=== PATIENT | female | born 1980 | race African-American/Black ===

== ENCOUNTER 2019-08-21 07:24 | Emergency (ER) | payer BC, OTHER ==
[2019-08-21 08:14] LABS: ABSOLUTE EOSINOPHILS # (AUTO) 0.1 10^3/uL (0.0-0.6); ABSOLUTE LYMPHOCYTES (AUTO) 1.8 10^3/uL (0.5-4.7); ABSOLUTE MONOCYTES (AUTO) 0.6 10^3/uL (0.1-1.4); BASOPHILS % (AUTO) 0.2 % (0-2); HEMATOCRIT 36.1 % (36.0-47.0); HEMOGLOBIN 12.5 g/dL (12.0-15.5); MEAN CORPUSCULAR HGB CONC 34.5 g/dL (32.0-36.0); MEAN CORPUSCULAR VOLUME 87 fl (80-97); MONOCYTES % (AUTO) 5.9 % (3-13); PLATELET COUNT 192 10^3/uL (150-450); RED BLOOD COUNT 4.16 10^6/uL (3.72-5.28); SEGMENTED NEUTROPHILS % (AUTO) 73.9 % (42-78); TOTAL CELLS COUNTED % (AUTO) 100 %; WHITE BLOOD COUNT 9.5 10^3/uL (4.0-10.5)
[2019-08-21 08:31] LABS: ALBUMIN 3.7 g/dL (3.5-5.0); ALKALINE PHOSPHATASE 70 U/L (38-126); ANION GAP 6 (5-19); ASPARTATE AMINO TRANSFERASE 18 U/L (14-36); BILIRUBIN,TOTAL 0.5 mg/dL (0.2-1.3); BLOOD UREA NITROGEN 9 mg/dL (7-20); CARBON DIOXIDE 22 mmol/L (22-30); CHLORIDE 109 mmol/L (98-107); GLUCOSE 100 mg/dL (75-110); POTASSIUM 3.8 mmol/L (3.6-5.0)
--- NOTE | 2019-08-21 08:31 | ER Document Report ---
ED GI/ - General Chief Complaint: Vaginal Bleeding Stated Complaint: ABDOMINAL PAIN,VAGINAL BLEEDING Time Seen by Provider: 08/21/19 08:08 Notes: CHIEF COMPLAINT: Vaginal bleeding and HPI: 39-year-old female who is a G7, presenting for evaluation of vaginal bleeding over the last 3 days. Started as spotting and progressed to heavy clots last night. Patient reports continued cramping and low back pain. Patient did see her [facility] at [facility] 4 days ago and did have an ultrasound which showed approximately 6-week 6-day gestational IUP. Patient is concerned about miscarriage. ROS: See HPI - all other systems were reviewed and are otherwise negative Constitutional: no fever or recent illness Eyes: no drainage, no blurred vision ENT: no runny nose, no sore throat Cardiovascular: no chest pain Resp: no SOB, no cough GI: no vomiting, no diarrhea, positive pelvic pain : no dysuria, no vaginal discharge, positive vaginal bleeding Integumentary: no rash Allergy: no hives Musculoskeletal: no extremity pain or swelling Neurological: no numbness/tingling, no weakness MEDICATIONS: I agree with the patient medications as charted by the RN. ALLERGIES: I agree with the allergies as charted by the RN. PAST MEDICAL HISTORY/PAST SURGICAL HISTORY: Reviewed and agree as charted by RN. SOCIAL HISTORY: Reviewed and agree as charted by RN. FAMILY HISTORY: No significant familial comorbid conditions directly related to patient complaint EXAM: Reviewed vital signs as charted by RN. CONSTITUTIONAL: Alert and oriented and responds appropriately to questions. Well-appearing; well-nourished, mild distress secondary to pain HEAD: Normocephalic; atraumatic EYES: PERRL; Conjunctivae clear, sclerae non-icteric ENT: normal nose; no rhinorrhea; moist mucous membranes; pharynx without lesions noted NECK: Supple without meningismus; non-tender; no cervical lymphadenopathy, no masses CARD: RRR; no murmurs, no clicks, no rubs, no gallops; symmetric distal pulses RESP: Normal chest excursion without splinting or tachypnea; breath sounds clear and equal bilaterally; no wheezes, no rhonchi, no rales ABD/GI: Normal bowel sounds; non-distended; soft, mild tenderness over the suprapubic region on palpation, no rebound, no guarding; no palpable organomegaly or masses : 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 External genitalia normal. No skin lesions noted. Pelvic Exam: Small amount of dark blood in the vaginal vault with 1 small clot present. No purulent discharge. Cervix appears normal. Cervical loss is op en to fingertip no CMT. No lesions or masses. Uterus enlarged consistent with 7- week gestation and mildly tender. Right/Left adnexa normal size and non tender. BACK: The back appears normal and is non-tender to palpation, there is no CVA tenderness EXT: Normal ROM in all joints; non-tender to palpation; no cyanosis, no effusions, no edema SKIN: Normal color for age and race; warm; dry; good turgor; no acute lesions noted NEURO: Moves all extremities equally; Motor and sensory function intact PSYCH: The patient's mood and manner are appropriate. Grooming and personal hygiene are appropriate. MDM: 39-year-old female with vaginal bleeding in the setting of patient is a positive blood type on review of her records. Will obtain ultrasound to evaluate for miscarriage, screening labs to evaluate for anemia TRAVEL OUTSIDE OF THE [place] IN LAST 30 DAYS: No - Related Data Allergies/Adverse Reactions: No Known Allergies Allergy (Verified 08/21/19 07:48) Past Medical History - Social History Smoking Status: Never Smoker Family History: CVA, DM, Thyroid Disfunction Patient has suicidal ideation: No Patient has homicidal ideation: No Past Surgical History: Reports: Hx Oral Surgery - Immunizations Immunizations up to date: Yes Hx Diphtheria, Pertussis, Tetanus Vaccination: Yes Physical Exam - Vital signs Vitals: Temp Pulse Resp BP Pulse Ox 97.9 F 80 18 100/69 100 08/21/19 07:32 08/21/19 07:32 08/21/19 07:32 08/21/19 07:32 08/21/19 07:32 Course - Re-evaluation Re-evalutation: 08/21/19 10:30 Ultrasound shows likely in progress. Patient's lab work is unremarkable. I did discuss this at length with her. She states that she was already told on Friday when she saw her [facility] that she might be having a miscarriage. She will call her [facility] today to discuss close follow-up she has an appointment scheduled for next . We discussed bleeding precautions at length and return precautions. - Vital Signs Vital signs: Temp Pulse Resp BP Pulse Ox 97.9 F 80 18 100/69 100 08/21/19 07:32 08/21/19 07:32 08/21/19 07:32 08/21/19 07:32 08/21/19 08:26 - Laboratory Result Diagrams: 08/21/19 07:55 08/21/19 07:55 Laboratory results interpreted by me: 08/21/19 08/21/19 07:55 08:16 Chloride 109 H Beta HCG, Quant 63882.00 H Urine Protein >=500 H Urine Glucose (UA) 50 H Urine Blood LARGE H Urine Urobilinogen 2.0 H Discharge - Discharge Clinical Impression: Miscarriage Condition: Stable Disposition: HOME, SELF-CARE Instructions: Miscarriage Impending ([facility]) Additional Instructions: Call your [facility] today to arrange closer follow-up in the office as discussed. If you begin having heavier bleeding or you are saturating greater than 2 pads per hour for 2 consecutive hours return to the emergency department for reevaluation. Your lab work did not show acute emergent abnormalities but your ultrasound suggests that you are miscarrying. Pain medication as prescribed no driving if taking narcotics for pain Prescriptions: Hydrocodone/Acetaminophen [[place] 5-325 mg Tablet] 1 tab PO Q4 PRN #15 tablet PRN Reason: Ondansetron [Zofran Odt 4 mg Tablet] 1 - 2 tab PO Q4H PRN #15 tab.rapdis PRN Reason: For Nausea/Vomiting
[2019-08-21 08:37] LABS: APPEARANCE,URINE CLOUDY; BILIRUBIN,URINE NEGATIVE (NEGATIVE); COLOR,URINE RED; GLUCOSE, URINE 50 mg/dL (NEGATIVE); KETONES,URINE NEGATIVE (NEGATIVE); LEUKOCYTE ESTERASE,URINE NEGATIVE (NEGATIVE); NITRITE,URINE NEGATIVE (NEGATIVE); PROTEIN,URINE >=500 mg/dL (NEGATIVE); URINE SPECIFIC GRAVITY 1.029
[2019-08-21 08:56] LABS: RBCS (WET MOUNT) 4+ RBCS SEEN; T.VAGINALIS (WET MOUNT) NO TRICHOMONAS SEEN; WBCS (WET MOUNT) 1+ WBCS SEEN; YEAST (WET MOUNT) NO YEAST SEEN
[2019-08-21] MEDS ORDERED: FENTANYL CITRATE INJ/PF 100 MCG/2 ML AMPUL IV ONE (08:57)
--- NOTE | 2019-08-21 09:31 | RADIOLOGY REPORT (SQ) ---
EXAM DESCRIPTION: U/S OB TRANSVAG W/DOPPLER IMAGES COMPLETED DATE/TIME: 08/21/2019 9:17 am REASON FOR STUDY: miscarriage COMPARISON: None. TECHNIQUE: Transvaginal static and realtime grayscale images acquired of the pelvis. Additional tim cted spectral and color Doppler images recorded. All images stored on PACs. [id number] CLINICAL DATES: 9 week 2 day LIMITATIONS: None. FINDINGS: FETUS: Single gestation, sac lies within the cervix. ULTRASOUND EGA: 6 week 5 day ULTRASOUND VIKASH: 04/10/2020 EFW: Not applicable less than 20 weeks. CRL: 8 mm. Yolk sac not seen. FHR: No cardiac activity identified. SURVEY: No visualized anomalies. AMNIOTIC FLUID: Adequate amount. PLACENTA: Not yet developed due to early gestation. SUBCHORIONIC BLEED: No. SIZE OF BLEED: Not applicable. UTERUS: No masses. No anomalies. CERVICAL LENGTH: 3.9 cm Closed. RIGHT ADNEXA: Normal ovary with normal vascular flow. No adnexal free fluid. No adnexal masses. LEFT ADNEXA: Normal ovary with normal vascular flow. No adnexal free fluid. No adnexal masses. FREE FLUID: None. OTHER: No other significant finding. IMPRESSION: 1. There is an IUP abnormally positioned within the cervix. pole corresponds to a 6 week 5 day gestation, but no flicker identified. Consistent with in progress. Trimester of : First trimester - 0 to 13 weeks. TECHNICAL DOCUMENTATION: JOB ID: [id number] 2010 [email or web address] All Rights Reserved Reading location - IP/workstation name: [email or web address]
[2019-08-21 10:20] LABS: CHLAM PCR NOT DETECTED (NOT DETECT)
[2019-08-21 11:07] VITALS: BP 108/76
== END 2019-08-21 11:06 | disposition home or self-care (01) ==
LOC: ER 07:24
DX: O03.9 Complete or unspecified spontaneous abortion without complication (principal)
CPT/HCPCS: 99284; 96374; 36415; 87210; 84702; 83690; 85025; 80053; 81001; 87491; 87591; 76817; 93976; J3010

== ENCOUNTER 2019-09-21 23:41 | Emergency (ER) | payer BC, OTHER ==
[2019-09-22] MEDS ORDERED: NORMAL SALINE 500 ML IV ONE (00:42)
[2019-09-22 01:08] LABS: ABSOLUTE EOSINOPHILS # (AUTO) 0.1 10^3/uL (0.0-0.6); ABSOLUTE LYMPHOCYTES (AUTO) 1.5 10^3/uL (0.5-4.7); ABSOLUTE MONOCYTES (AUTO) 0.7 10^3/uL (0.1-1.4); HEMOGLOBIN 12.1 g/dL (12.0-15.5); TOTAL CELLS COUNTED % (AUTO) 100 %
[2019-09-22 01:16] LABS: ABSOLUTE NEUT (AUTO) 7.9 10^3/uL (1.7-8.2); BASOPHILS % (AUTO) 0.3 % (0-2); HEMATOCRIT 34.6 % (36.0-47.0); LYMPHOCYTES % (AUTO) 14.6 % (13-45); MEAN CORPUSCULAR HEMOGLOBIN 29.2 pg (27.0-33.4); MEAN CORPUSCULAR VOLUME 84 fl (80-97); MONOCYTES % (AUTO) 6.5 % (3-13); PLATELET COUNT 225 10^3/uL (150-450); RED BLOOD COUNT 4.14 10^6/uL (3.72-5.28); RED CELL DISTRIBUTION WIDTH 13.9 % (11.5-14.0); SEGMENTED NEUTROPHILS % (AUTO) 77.6 % (42-78); WHITE BLOOD COUNT 10.2 10^3/uL (4.0-10.5)
[2019-09-22 01:40] LABS: ALBUMIN 3.8 g/dL (3.5-5.0); ALKALINE PHOSPHATASE 90 U/L (38-126); ANION GAP 7 (5-19); ASPARTATE AMINO TRANSFERASE 54 U/L (14-36); BILIRUBIN,TOTAL 0.4 mg/dL (0.2-1.3); BLOOD UREA NITROGEN 11 mg/dL (7-20); CALCIUM 9.3 mg/dL (8.4-10.2); CARBON DIOXIDE 24 mmol/L (22-30); CHLORIDE 107 mmol/L (98-107); GLUCOSE 94 mg/dL (75-110); POTASSIUM 4.1 mmol/L (3.6-5.0); TOTAL PROTEIN 7.3 g/dL (6.3-8.2)
[2019-09-22] MEDS ORDERED: ONDANSETRON HCL INJ/PF 4 MG/2 ML SDV IV ONE (02:16)
[2019-09-22] MEDS ORDERED: MORPHINE SULFATE 10 MG/ML INJ IV ONE (02:16)
--- NOTE | 2019-09-22 02:17 | ER Document Report ---
ED GI/ - General Chief Complaint: Abdominal Pain Stated Complaint: FLANK PAIN Time Seen by Provider: 09/22/19 01:55 Notes: Patient is a 39-year-old female that comes to the emergency department for chief complaint of right upper quadrant pain that radiates around to her right side of her back. She states she felt it in the morning, it resolved, however after eating spaghetti dinner at 6 PM tonight shortly after she started experiencing waves of severe pain that caused her to be nauseated. She denies vomiting, she states pain is actually started subsiding but is still present. She denies any surgeries other than oral surgery, only takes anti-allergy medication. She states she had a miscarriage last month. She denies alcohol or recreational drugs. TRAVEL OUTSIDE OF THE [place] IN LAST 30 DAYS: No - Related Data Allergies/Adverse Reactions: No Known Allergies Allergy (Verified 08/21/19 07:48) Home Medications: ALLERGY MEDICATION Past Medical History - General Information source: Patient - Social History Smoking Status: Never Smoker Frequency of alcohol use: None Drug Abuse: None Lives with: Family Family History: CVA, DM, Thyroid Disfunction Patient has homicidal ideation: No Past Surgical History: Reports: Hx Oral Surgery - Immunizations Immunizations up to date: Yes Hx Diphtheria, Pertussis, Tetanus Vaccination: Yes Review of Systems - Review of Systems Constitutional: No symptoms reported EENT: No symptoms reported Cardiovascular: No symptoms reported Respiratory: No symptoms reported Gastrointestinal: See HPI Genitourinary: No symptoms reported Female Genitourinary: No symptoms reported Musculoskeletal: No symptoms reported Skin: No symptoms reported Hematologic/Lymphatic: No symptoms reported Neurological/Psychological: No symptoms reported Physical Exam - Vital signs Vitals: Temp 98.4 F 09/21/19 23:41 - Notes Notes: GENERAL: Alert, interacts well. No acute distress. HEAD: Normocephalic, atraumatic. EYES: Pupils equal, round, and reactive to light. Extraocular movements intact. ENT: Oral mucosa moist, tongue midline. Oropharynx unremarkable. Airway patent. NECK: Full range of motion. Supple. Trachea midline. No lymphadenopathy. LUNGS: Clear to auscultation bilaterally, no wheezes, rales, or rhonchi. No respiratory distress. Non-tender chest wall. HEART: Regular rate and rhythm. No murmur ABDOMEN: Epigastric and right upper quadrant tenderness on exam, the tenderness is moderate, there is no guarding, remaining abdomen is soft and benign, bowel sounds present GENITOURINARY: Deferred EXTREMITIES: Moves all 4 extremities spontaneously. No edema, normal radial and dorsalis pedis pulses bilaterally. No cyanosis. BACK: no cervical, thoracic, lumbar midline tenderness. No saddle anesthesia, normal distal neurovascular exam. Moves all extremities in full range of motion. NEUROLOGICAL: Alert and oriented x3. Normal speech. Cranial nerves II through XII grossly intact. Strength 5/5 in all extremities. PSYCH: Normal affect, normal mood. SKIN: Warm, dry, normal turgor. No rashes or lesions noted. Course - Re-evaluation Re-evalutation: Symptoms had started resolving on their own before I saw the patient, after medication symptoms completely resolved. CBC, chemistry, lipase unremarkable. Urinalysis nonspecific. Right upper quadrant ultrasound shows some gallbladder sludge but no pericholecystic fluid, signs of obstruction, or concerning findings. Discussed with patient. Overall impression is gallbladder dyskinesis based on her evaluation, symptoms, work-up. Low suspicion of acute abdomen at this time. Patient is able to tolerate p.o. without difficulty. Discussed follow-up instructions, medications, return precautions in detail. Patient states appreciation and agreement. Stable, well-appearing, asymptomatic at time of discharge. - Vital Signs Vital signs: Temp Pulse Resp BP Pulse Ox 98.2 F 67 14 115/73 100 09/22/19 04:18 09/22/19 04:18 09/22/19 04:18 09/22/19 04:18 09/22/19 04:18 - Laboratory Result Diagrams: 09/22/19 00:59 09/22/19 00:59 Laboratory results interpreted by me: 09/22/19 09/22/19 09/22/19 00:59 00:59 01:50 Hct 34.6 L AST 54 H Urine Blood MODERATE H Ur Leukocyte Esterase SMALL H Discharge - Discharge Clinical Impression: RUQ abdominal pain, Nausea Condition: Stable Disposition: HOME, SELF-CARE Additional Instructions: Your work-up shows a small amount of sludge in your gallbladder but no concerning findings. Based on your symptoms and evaluation tonight I suspect that you have gallbladder dyskinesis, essentially a malfunctioning gallbladder. I recommend that you follow-up with your primary care provider have a HIDA scan performed. I highly recommend that you eat a bland diet and especially avoid any f atty/fried/greasy foods as these will significantly worsen your symptoms. You have been provided with pain and nausea medication to take if needed, however if you develop persistent vomiting, severe worsening pain, fever, or any other concerning symptoms return to the emergency department. Prescriptions: Ketorolac Tromethamine [Toradol 10 mg Tablet] 10 mg PO Q8HP PRN #24 tablet PRN Reason: Hydrocodone/Acetaminophen [[place] 5-325 mg Tablet] 1 - 2 tab PO ASDIR PRN #10 t ablet PRN Reason: Ondansetron [Zofran Odt 4 mg Tablet] 1 - 2 tab PO Q4H PRN #15 tab.rapdis PRN Reason: For Nausea/Vomiting Forms: Return to Work
[2019-09-22 02:21] LABS: APPEARANCE,URINE SLIGHTLY-CLOUDY; BILIRUBIN,URINE NEGATIVE (NEGATIVE); COLOR,URINE YELLOW; GLUCOSE, URINE NEGATIVE (NEGATIVE); KETONES,URINE NEGATIVE (NEGATIVE); LEUKOCYTE ESTERASE,URINE SMALL (NEGATIVE); NITRITE,URINE NEGATIVE (NEGATIVE); PROTEIN,URINE NEGATIVE (NEGATIVE); UROBILINOGEN,URINE NEGATIVE mg/dL (<2.0)
--- NOTE | 2019-09-22 03:41 | RADIOLOGY REPORT (SQ) ---
EXAM DESCRIPTION: US ABDOMEN LIMITED COMPLETED DATE/TME: 09/22/2019 02:16 CLINICAL HISTORY: 39 years Female, RUQ pain, nausea Comparison: None. LIMITATIONS: Bowel gas and body habitus artifact. FINDINGS: Gallbladder sludge, negative sonographic Hu's test, liver, a 0.4-cm diameter common bile duct, no intrahepatic ductal dilation, hepatopetal patent flow of the portal vein, 9-cm right kidney, pancreas, visualized vasculature/abdominal aorta, and no significant ascites appear otherwise unremarkable. IMPRESSION: No acute findings. Gallbladder sludge.
[2019-09-22] MEDS ORDERED: HYDROCODONE/ACETAMINOPHEN 5-325 MG (6 TAB/ER DISP) PO PRN (03:49)
[2019-09-22] MEDS ORDERED: ONDANSETRON ODT 4 MG TAB (6 TAB/ER DISP) PO PRN (03:49)
[2019-09-22 04:19] VITALS: BP 115/73
== END 2019-09-22 04:18 | disposition home or self-care (01) ==
LOC: ER 23:41
DX: R10.11 Right upper quadrant pain (principal); R11.0 Nausea
CPT/HCPCS: 99284; 96360; 36415; 83690; 85025; 81025; 80053; 81001; 76705; J7040

== ENCOUNTER → 2020-04-13 | Outpatient (CLI) | payer OTHER ==
--- NOTE | 2020-04-13 12:31 | WOMENS IMAGING REPORT ---
EXAM DESCRIPTION: BILAT SCREENING MAMMO W/CAD IMAGES COMPLETED DATE/TIME: 04/13/2020 9:25 am REASON FOR STUDY: Z12.31 ENCNTR SCREEN MAMMOGRAM FOR MALIGNANT NEOPLASM OF BREAST Z12.31 ENCNTR SCR EEN MAMMOGRAM FOR MALIGNANT NEOPLASM OF [place] COMPARISON: None. EXAM PARAMETERS: Standard craniocaudal and mediolateral oblique views of each breast recorded using digital acquisition. Read with the assistance of CAD. .[facility] - [employer] Interviewer Version 9.2 LIMITATIONS: None. FINDINGS: No suspicious masses, suspicious calcifications or architectural distortion. No areas of c oncern. IMPRESSION: NEGATIVE MAMMOGRAM. BIRADS 1 BREAST DENSITY: b. There are scattered areas of fibroglandular density. BIRAD: ASSESSMENT: 1 NEGATIVE RECOMMENDATION: ROUTINE SCREENING COMMENT: The patient has been notified of the results by letter per MQSA requirements. Additional no tification policies are in place for contacting patient with suspicious or incomplete findings. Quality ID #[id number]: The [employer] recommends an annual screening mammogram for women aged 40 years or over. This facility utilizes a reminder system to ensure that all patients receive reminder letters, and/or direct phone calls for appointments. This includes reminders for routine scr eening mammograms, diagnostic mammograms, or other Breast Imaging Interventions when appropriate. Th is patient will be placed in the appropriate reminder system. TECHNICAL DOCUMENTATION: FINDING NUMBER: (1) ASSESSMENT: (1) JOB ID: [id number] 2010 [employer]- All Rights Reserved Reading location - IP/workstation name: [email or web address]
== END ==
LOC: WI 08:47
PROVIDERS: ATTEND Physician Assistant
DX: Z12.31 Encounter for screening mammogram for malignant neoplasm of breast (principal)
CPT/HCPCS: 77067